=== PATIENT | female | born 1995 | race Caucasian/White ===

== ENCOUNTER 2019-04-26 16:30 | Outpatient (CLI) | payer MEDICAID, OTHER ==
[~2019-04-26] VITALS: Ht 152.4 cm; Wt 74.8 kg
[2019-04-26] MEDS ORDERED: HYDROCODONE/APAP (5/325) TAB PO STA (20:28)
[2019-04-26] MEDS ORDERED: HYDROCODONE/APAP (5/325) TAB ONE (20:34)
[2019-04-26] MEDS ORDERED: PREN-99 PO (21:36)
[2019-04-26] MEDS ORDERED: FER325 PO (21:36)
--- NOTE | 2019-04-27 04:50 | PN ---
Triage Information Date/Time Reason for visit: Patient seen for care in office today. Sent for further evaluation for size less than Weeks of Gestation 36 weeks and 6 days /Para G1 Diabetes: none Hypertention: none Objective Heart Rate: 140's Contractions: < 5 Minutes Apart Results/Medications Result Diagram: 04/26/19 1700 Results 24 hrs Laboratory Tests Test 04/26/19 17:00 04/26/19 17:10 White Blood Count 9.9 Red Blood Count 3.81 L Hemoglobin 10.2 L Hematocrit 31.6 L Mean Corpuscular Volume 82.9 Mean Corpuscular Hemoglobin 26.8 L Mean Corpuscular Hemoglobin Concent 32.3 Red Cell Distribution Width 13.2 Platelet Count 286 Mean Platelet Volume 10.2 Neutrophils % 77.4 H Lymphocytes % 13.0 L Monocytes % 8.5 Eosinophils % 0.5 Basophils % 0.2 Nucleated Red Blood Cells % 0.0 Neutrophils # 7.6 H Lymphocytes # 1.3 Monocytes # 0.8 Eosinophils # 0.1 Basophils # 0.0 Nucleated Red Blood Cells # 0.0 Urine Color STRAW Urine Clarity CLEAR Urine pH 7.0 Urine Specific [place] 1.008 Urine Ketones NEGATIVE Urine Nitrite NEGATIVE Urine Bilirubin NEGATIVE Urine Urobilinogen NEGATIVE Urine Leukocyte Esterase 3+ H Urine Microscopic RBC 2 Urine Microscopic WBC 10 H Urine Squamous Epithelial Cells FEW Urine Hemoglobin NEGATIVE Urine Glucose NEGATIVE Urine Total Protein NEGATIVE Disposition: Discharge Assessment/Plan 23 years old 1 with single intrauterine at 36 weeks and 6 days with a BEL of 05/21/2019 was seen for visit today, sent to triage for further evaluation for size less than dates. She states good movement. She denies nausea, vomiting, shortness of breath, chest pain, headache, visual changes, vaginal bleeding or LOF. -FHR: No sign of metabolic acidosis- Category I -Contractions: Every 2-6 minutes, patient is comfortable and not feeling those -SVE: Closed/thick/high/ceph/intact, no cervical changes in repeat exam -Ultrasound performed: Normal VINEET, BPP 8 out of 8 -Blood type O+ rubella immune, positive GBS -Urine analyses with 10 white BC. Urine culture ordered. Cephalexin 500 mg every 8 hours ordered -Symptoms and sign of labor, preeclampsia, kick count discussed with patient, she voiced understanding. All of her questions answered. -Patient was discharged home in stable condition with the appropriate discharge instructions provided. I would like patient to have close follow-up with her primary physician or outpatient clinic in 1-2 days or return to triage for worsening symptoms or any other urgent concerns. NOE LAW Apr 27, 2019 04:50
--- NOTE | 2019-04-27 07:55 | TRIAGE ---
OB Triage Datetime Report Generated by CPN: 04/27/2019 07:55 Datetime: 04/26/2019 21:05 Stage of : OB Triage Labor Evaluation Frequency: 2-6 Monitor Mode: External Duration (sec)2399: 50-90 Quality: Mild Pattern: Normal: <= 5 Contractions in 10 Minutes Resting Tone [place]: Relaxed Heart Rate FHR Baseline Rate: 140 Monitor Mode: External US FHR Baseline Changes: No Baseline Change Variability: Moderate 6-25 bpm Accelerations: 15X15 Decelerations: None Category: Category I Datetime: 04/26/2019 20:13 Temperature Route: Oral Pain Assessment Pain Scale: 5 Pain Presence: Intermittent Pain Type: Ache Pain Location: Back Pain Relief Measures: Comfort Measures Datetime: 04/26/2019 20:00 Stage of : OB Triage Labor Evaluation Frequency: 1-5 Monitor Mode: External Duration (sec)2399: 50-90 Quality: Mild Pattern: Normal: <= 5 Contractions in 10 Minutes Resting Tone [place]: Relaxed Heart Rate FHR Baseline Rate: 140 Monitor Mode: External US FHR Baseline Changes: No Baseline Change Variability: Moderate 6-25 bpm Accelerations: 15X15 Decelerations: None Category: Category I Datetime: 04/26/2019 19:00 Labor Evaluation Frequency: 2 Monitor Mode: External Duration (sec)2399: 60-80 Quality: Mild Pattern: Normal: <= 5 Contractions in 10 Minutes Resting Tone [place]: Relaxed Heart Rate FHR Baseline Rate: 140 Monitor Mode: External US FHR Baseline Changes: No Baseline Change Variability: Moderate 6-25 bpm Accelerations: 15X15 Decelerations: None Category: Category I Pain Presence: None/Denies Datetime: 04/26/2019 18:30 Labor Evaluation Frequency: 2 Monitor Mode: External Duration (sec)2399: 50-80 Quality: Mild Pattern: Normal: <= 5 Contractions in 10 Minutes Resting Tone [place]: Relaxed Heart Rate FHR Baseline Rate: 135 Monitor Mode: External US FHR Baseline Changes: No Baseline Change Variability: Moderate 6-25 bpm Accelerations: 15X15 Decelerations: None Category: Category I Pain Presence: None/Denies Pain Assessment Comments: Pt denies feeling any pain or pressure with UC Datetime: 04/26/2019 18:13 Vaginal Exam Dilatation (cms): 0.0 Effacement (%): 0 Station: -3 Exam By: TM Datetime: 04/26/2019 17:30 Labor Evaluation Frequency: OCC Monitor Mode: External Quality: Mild Pattern: Normal: <= 5 Contractions in 10 Minutes Resting Tone [place]: Relaxed Heart Rate FHR Baseline Rate: 140 Monitor Mode: External US FHR Baseline Changes: No Baseline Change Variability: Moderate 6-25 bpm Accelerations: 15X15 Decelerations: None Category: Category I Pain Presence: None/Denies Datetime: 04/26/2019 17:17 Time of Arrival: 04/26/2019 16:17 EGA: 36.6 Arrived By: Ambulatory Arrived From: [facility] Office Chief Complaint: R/O PTL (cramps), S>D, high VINEET Movement: Present Contractions: Occasional Rupture of Membranes: Denies Vaginal Bleeding: Normal Show Vaginal Discharge: Denies Recent Sexual Intercouse: Denies Abdominal Trauma: Not Applicable Patient Complaints: Contractions Time Provider Notified: 04/26/2019 17:00 Provider Notified: Lazaro Initial Plan: BPP, EFW, VE, UA, CBC Datetime: 04/26/2019 16:58 Assessment Type: Triage Maternal Assessment Level of Consciousness: Keenly Alert, Responsive DTR's/Clonus: DTRs 2+; No Clonus Headache: Denies Blurred Vision: No Respiratory Effort: Unlabored; Regular Rhythm; Equal Expansion Breath Sounds, Left: Clear and Equal Breath Sounds, Right: Clear and Equal Nausea/Vomiting: Denies RUQ Epigastric Pain: Denies Lower Extremities Edema: Bilateral Lower Extremities Degree: Trace Upper Extremities Edema: None Degree: None Facial Edema: None Fall Risk Assessment History of Falling: (0) No Secondary Diagnosis: (0) No Ambulatory Aid: (0) Bedrest/Nurse Assist IV Therapy: (0) No Gait: (0) Normal/Bedrest/Immobile Mental Status: (0) Oriented to Own Ability Fall Score: 0 Fall Risk Score Definition: No Risk: No action required
== END 2019-04-26 21:57 | disposition home or self-care (01) ==
LOC: OBT 16:30 → L-D 16:34 → OBT 21:57
PROVIDERS: ATTEND Obstetrics & Gynecology
DX: O26.893 Other specified pregnancy related conditions, third trimester (principal); R10.9 Unspecified abdominal pain; Z3A.36 36 weeks gestation of pregnancy
CPT/HCPCS: 76815; 76818; 81001; 85025; Z7500; Z7610; G0463

== ENCOUNTER 2019-05-15 14:53 | Inpatient (IN) | payer OTHER ==
[~2019-05-15] VITALS: Ht 152.4 cm; Wt 75.0 kg
[~2019-05-15 14:53] MED LIST: FER325 PO; PREN-99 PO
--- NOTE | 2019-05-15 15:03 | TRIAGE ---
OB Triage Datetime Report Generated by CPN: 05/15/2019 15:03 Datetime: 05/15/2019 15:01 Time of Arrival: 05/15/2019 14:40 EGA: 39.4 Arrived By: Wheelchair Arrived From: Home Chief Complaint: PT. HERE FOR UC'S Movement: Present Contractions: Regular Rupture of Membranes: Denies Vaginal Bleeding: None Vaginal Discharge: Denies Recent Sexual Intercouse: Denies Abdominal Trauma: Not Applicable Patient Complaints: Contractions; Cramping; Back Pain Time Provider Notified: 05/15/2019 14:45 Provider Notified: HADADIAN Initial Plan: EFM/SVE Datetime: 04/26/2019 21:04 Pain Assessment Pain Scale: 0 Pain Presence: None/Denies Pain Type: N/A Datetime: 04/26/2019 17:17 EGA: 36.6 Datetime: 04/26/2019 16:58 Fall Risk Assessment Fall Score: 0 Fall Risk Score Definition: No Risk: No action required
[2019-05-15] MEDS: LACTATED RINGER'S 1,000 ML IV SCH ×2 (15:26→22:47)
[2019-05-15] MEDS ORDERED: OXYTOCIN 30 UNITS/LR 500 ML IV PRN (15:30)
[2019-05-15] MEDS ORDERED: CARBOPROST 250 MCG INJ IM PRN (15:30)
[2019-05-15] MEDS ORDERED: IBUPROFEN 600 MG TAB PO PRN (15:30)
[2019-05-15] MEDS ORDERED: BUTORPHANOL 2 MG INJ IV PRN (15:30)
[2019-05-15] MEDS ORDERED: METHYLERGONOVINE 0.2 MG INJ IM PRN (15:30)
[2019-05-15] MEDS ORDERED: LIDOCAINE 1% (MPF) 30 ML INJ INJ PRN (15:30)
[2019-05-15] MEDS ORDERED: MISOPROSTOL 200 MCG TAB PR PRN (15:30)
[2019-05-15] MEDS ORDERED: OXYTOCIN 30 UNITS/LR 500 ML IV SCH ×2 (15:30)
[2019-05-15] MEDS ORDERED: AMPICILLIN 2 GM/NS (PMX) 100 ML IV ONE (15:30)
--- NOTE | 2019-05-15 16:13 | PREAC ---
Date/Time of Note Date/Time of Note DATE: 05/15/19 TIME: 16:12 Anesthesia Eval and Record Evaluation Time Pre-Procedure Interview DATE: 05/15/19 TIME: 16:12 Age 23 Sex female NPO: 8 hrs Preoperative diagnosis labor pain Planned procedure epidural Past Medical History Past Medical History: Includes : Gestational age: (38.4) Surgery & Anesthesia Issues No known issue Meds Anticoagulation: No Beta Boyd within 24 hr: No Reason Beta Boyd not given: Pt. not on B-Boyd Reported Medications Ferrous Sulfate* (Ferrous Sulfate*) 325 Mg Tabec, 325 MG PO DAILY, TAB 04/26/19 Vit #76/Iron,Carb/FA (Pnv 29-1 Tablet) 1 Each Tablet, 1 EACH PO, TAB 04/26/19 Current Medications Lactated Ringer's 1,000 ml @ 125 mls/hr Q8H IV Last administered on 05/15/19at 15:26; Admin Dose 125 MLS/HR; Start 05/15/19 at 15:03 Ampicillin 100 ml @ 100 mls/hr ONCE ONCE IV Last administered on 05/15/19at 15:33; Admin Dose 100 MLS/HR; Start 05/15/19 at 15:30; Stop 05/15/19 at 16:29 Ampicillin 50 ml @ 100 mls/hr Q4H IV ; Start 05/15/19 at 19:30 Butorphanol Tartrate (Stadol) 2 mg Q2H PRN IV .PAIN SCALE 6-10; Start 05/15/19 at 15:30 Lidocaine (Xylocaine 1% (Mpf)) 30 ml ONCE PRN INJ .EPISIOTOMY; Start 05/15/19 at 15:30 Oxytocin/Lactated Ringer's 500 ml @ 500 mls/hr ONCE POST IV ; Start 05/15/19 at 15:30 Oxytocin/Lactated Ringer's 500 ml @ 125 mls/hr POST IV ; Start 05/15/19 at 15:30 Ibuprofen (Motrin) 600 mg ONCE PRN PO .PAIN 1-5; Start 05/15/19 at 15:30 Oxytocin/Lactated Ringer's 500 ml @ 0 mls/hr ONCE PRN IV .VAGINAL BLEEDING; Start 05/15/19 at 15:30 Methylergonovine Maleate (Methergine) 0.2 mg ONCE PRN IM .VAGINAL BLEEDING; Start 05/15/19 at 15:30 Carboprost Tromethamine (Hemabate) 250 mcg ONCE PRN IM .VAGINAL BLEEDING; Start 05/15/19 at 15:30 Misoprostol (Cytotec) 1,000 mcg ONCE PRN ME .VAGINAL BLEEDING; Start 05/15/19 at 15:30 Meds reviewed: Yes Allergies Coded Allergies: No Known Allergy (Unverified , 04/26/19) Allergies Reviewed: Yes Labs/Studies Labs Reviewed: Reviewed by anesthesiologist Result Diagram: 05/15/19 1510 Laboratory Tests 05/15/19 15:10 Blood Bank Test 05/15/19 15:10 Rh Immune Globulin Candidate NO test: Positive Studies: ECG (n/a), CXR (n/a) Pre-procedure Exam Airway: Adequate mouth opening Mallampati: Mallampati I Teeth: Normal Lung: Normal Heart: Normal ASA Physical Status ASA physical status: 2 Emergency: None Planned Anesthetic Neuraxial: Epidural Pre-operative Attestations Prior to commencing anesthesia and surgery, the patient was re-evaluated, there was verification of: *The patient's identity *The results of appropriate recent lab work and preoperative vital signs *The above evaluation not changing prior to induction *Anesthetic plan, risk benefits, alternative and complications discussed with patient/family; questions answered; patient/family understands, accepts and wishes to proceed. SOFIE CAR MD May 15, 2019 16:13
[2019-05-15] MEDS ORDERED: LACTATED RINGER'S 1,000 ML IV ONE (16:30)
[2019-05-15] MEDS ORDERED: NALOXONE (0.4 MG/ML) INJ IV PRN (16:30)
[2019-05-15] MEDS ORDERED: ONDANSETRON 4 MG INJ IV PRN (16:30)
[2019-05-15] MEDS ORDERED: DIPHENHYDRAMINE 50 MG INJ IV PRN (16:30)
--- NOTE | 2019-05-15 16:33 | PAC ---
Date/Time of Note Date/Time of Note DATE: 05/15/19 TIME: 16:32 Post-Anesthesia Notes Post-Anesthesia Note Last documented vital signs BP129/63, sat 995, RR 19, Hr 85 temp 38.2 Activity: WNL Respiratory function: WNL Cardiovascular function: WNL Mental status: Baseline Pain reasonably controlled: Yes Hydration appropriate: Yes Nausea/Vomiting absent: No SOFIE CAR MD May 15, 2019 16:33
--- NOTE | 2019-05-15 16:52 | HP ---
Date/Time of Note Date/Time of Note DATE: 05/15/19 TIME: 16:49 OB - History Hx of Present Free Text/Dictation 23 years old 1 with single intrauterine at 39 weeks and 1 day complaining of uterine contractions. She states good movement. She denies nausea, vomiting, shortness of breath, chest pain, headache, visual changes, vaginal bleeding or LOF. Chief Complaint: Uterine contractions Estimated Due Date: May 21, 2019 : 1 Care: Good Care Ultrasounds: Normal mid trimester US Obstetrical Complications: None Past Family/Social History * Past Medical, Surgical, Family and Obstetric Histories reviewed from chart. Blood Type: O+ Rubella: immune RPR/VDRL: Negative GBS Status: Positive HBsAG: Negative OB Admission Exam Vital Signs Vital Signs Blood pressure 120/67, pulse rate 70/minutes, respiratory rate 16/minutes, temperature 98.6 Physical Exam HEENT: WNL Heart: Rhythm Normal Lungs: Clear Abdomen: WNL Extremities: Normal Cervical Dilatation: 4cm Effacement: Other (90%) Station: -3 Membranes: Intact Heart Rate: 140's Accelerations: Accelerations Present Decelerations: No Decelerations Varibility: Moderate Contractions on Admission: < 5 Minutes Apart Intensity: Firm Last 72 hours Lab Results CBC & BMP 05/15/19 15:10 OB Assessment/Plan Other plan: 23 years old 1 with single intrauterine at 39 weeks and 4 days in labor-FHR: No sign of metabolic acidosis- Category I -Continuous EFM, toco -CBC, blood type and screen -Analgesia options with R/B/A discussed in detail with patient -Epidural per patient request -Please see the orders -O+/Rubella: Immune -GBS: Positive, ampicillin ordered Admission, procedures, expectations, risks and possible complications have been discussed in detail with the patient. Risk of vaginal delivery including but not limited to bleeding, infection, cervical laceration, placental retention, injury to fetus, blood transfusion, blood transfusion related infection, risk of anesthesia, adhesion, cervical laceration, episiotomy/laceration, possible delivery with risk of bleeding, infection, injury to other organs (bowel, bladder, ureter, vessels, nerves), injury to fetus, blood transfusion, blood transfusion related infection, risk of anesthesia, scar and hernia formation, needs for future , removal of uterus or any other indicated surgery discussed with the patient. She expressed understanding and repeats the risks. All of her questions were answered. She signed the informed consent. PHYSICIAN'S VERIFICATION OF INFORMED CONSENT The patient was counseled regarding the procedure, its indications, risks, potential complications and alternatives and any questions were answered. Consent was obtained. PLANNED PROCEDURE/TREATMENT: Vaginal delivery, episiotomy, repair of laceration possible delivery NOE LAW May 15, 2019 16:52
[2019-05-15] MEDS: AMPICILLIN 1 GM/NS (PMX) 50 ML IV SCH (19:59)
[2019-05-15] MEDS: FENTAnyl 2MCG/ML-ROPIV 0.2% 100 ML BAG EPI SCH ×2 (20:00→22:08)
[2019-05-16] MEDS: AMPICILLIN 1 GM/NS (PMX) 50 ML IV SCH ×6 (00:07→17:30)
[2019-05-16 00:09] VITALS: Ht 152.4 cm; Wt 75.0 kg
[2019-05-16] MEDS: FENTAnyl 2MCG/ML-ROPIV 0.2% 100 ML BAG EPI SCH (02:54)
[2019-05-16] MEDS: LACTATED RINGER'S 1,000 ML IV SCH ×2 (03:56→08:08)
--- NOTE | 2019-05-16 09:26 | LDN ---
Date/Time of Note Date/Time of Note DATE: 05/16/19 TIME: 09:19 Delivery Summary 23 years old 1 with single intrauterine at 39 weeks and 6 day. Estimated due date May 18, 2019. s/p of viable male infant. After delivery of the head the rest of the body delivered easily. I did not apply excessive traction. Placenta delivered spontaneously and intact. evaluation of the placenta confirmed intact placenta. Uterus was firm with cervix closed on exam. Second-degree vaginal perineal laceration was repaired with 3-0 Vicryl in normal fashion. Placenta Delivered: Spontaneously Meconium: none Episiotomy: No Sponge & Needle done & correct: Yes All needle counts correct: Yes Any foreign bodies felt in the: No Delivery Information Sex Infant Sex: male Apgars 1 Minute: 8 5 Minute: 9 Suctioning Nose & mouth suctioned at travis: No Delee suction performed: No Umbilical Cord Umbilical cord with: 3 Vessels Cord presentations: no nuchal cord Nuchal cord present X: 0 Cord Blood was obtained: Yes Mother & Baby Disposition Disposition Mom & Baby to Maternity; Good: Yes LISBETH MITTAL MD May 16, 2019 09:26
[2019-05-16] MEDS ORDERED: BENZOCAINE 20% 56 ML SPRAY TOP PRN (09:30)
[2019-05-16] MEDS ORDERED: WITCH HAZEL/GLYCERIN PAD PR PRN (09:30)
[2019-05-16] MEDS ORDERED: DIPHENHYDRAMINE 25 MG CAP PO PRN (09:30)
[2019-05-16] MEDS ORDERED: MISOPROSTOL 200 MCG TAB PR PRN (09:30)
[2019-05-16] MEDS ORDERED: OXYTOCIN 30 UNITS/LR 500 ML IV PRN (09:30)
[2019-05-16] MEDS ORDERED: NA PHOSPHATE/BIPHOS 133 ML ENEMA PR PRN (09:30)
[2019-05-16] MEDS ORDERED: SENNA/DOCUSATE NA (8.6MG/50MG) TAB PO PRN (09:30)
[2019-05-16] MEDS ORDERED: DIPHENHYDRAMINE 50 MG INJ IV PRN (09:30)
[2019-05-16] MEDS ORDERED: ONDANSETRON 4 MG INJ IV PRN (09:30)
[2019-05-16] MEDS ORDERED: ONDANSETRON 4 MG TAB PO PRN (09:30)
[2019-05-16] MEDS ORDERED: LANOLIN HPA 1 PKT TOP PRN (09:30)
[2019-05-16] MEDS ORDERED: DIBUCAINE 1% 30 GM OINT TOP PRN (09:30)
[2019-05-16] MEDS ORDERED: MAGNESIUM HYDROXIDE 30ML CUP PO PRN (09:30)
[2019-05-16] MEDS ORDERED: CARBOPROST 250 MCG INJ IM PRN (09:30)
[2019-05-16] MEDS ORDERED: HYDROCODONE/APAP (5/325) TAB PO PRN (09:30)
[2019-05-16 10:55] VITALS: BP 115/55; PULSE 82; RESP 18
[2019-05-16] MEDS: LACTATED RINGER'S 1,000 ML IV* SCH ×2 (11:00→17:17)
[2019-05-16] MEDS: IBUPROFEN 600 MG TAB PO SCH ×3 (12:00→23:54)
[2019-05-16] MEDS: HYDROCODONE/APAP (5/325) TAB PO PRN (14:52)
[2019-05-16 16:15] VITALS: BP 120/59; PULSE 72; RESP 17
[2019-05-16 20:45] VITALS: BP 119/60; PULSE 80; RESP 18
[2019-05-16] MEDS: SENNA/DOCUSATE NA (8.6MG/50MG) TAB PO SCH (21:33)
[2019-05-17 04:00] VITALS: BP 117/58; PULSE 76; RESP 17
[2019-05-17] MEDS: IBUPROFEN 600 MG TAB PO SCH ×3 (05:48→18:02)
[2019-05-17 08:30] VITALS: BP 117/66; PULSE 77; RESP 17
[2019-05-17] MEDS: SENNA/DOCUSATE NA (8.6MG/50MG) TAB PO SCH ×2 (10:33→21:29)
[2019-05-17 16:00] VITALS: BP 115/73; PULSE 83; RESP 16
--- NOTE | 2019-05-17 17:35 | DS ---
Date/Time of Note Date/Time of Note DATE: 05/17/19 TIME: 17:34 Obstetrical Discharge Record Final Diagnosis Final Diagnosis: Term delivered Vaginal Delivery Obstetrical Delivery: Spontaneous Complications Augmentation: Yes Induction: No Rupture of Membranes: No Condition on Discharge Physical Assessment Voiding: Yes Bowel Movement: Yes Breast: Soft, non-tender, Filling Fundus: Firm Abdomen and Incision: Soft nontender Calf Tenderness: No Patient Condition: Good LISBETH MITTAL MD May 17, 2019 17:35
[2019-05-17 21:40] VITALS: BP 126/74; PULSE 78; RESP 18
[2019-05-18] MEDS: IBUPROFEN 600 MG TAB PO SCH ×3 (00:37→11:42)
[2019-05-18 04:00] VITALS: BP 121/58; PULSE 79; RESP 17
[2019-05-18 07:55] VITALS: BP 120/66; PULSE 72; RESP 18
[2019-05-18] MEDS: HYDROCODONE/APAP (5/325) TAB PO PRN (07:55)
[2019-05-18] MEDS: SENNA/DOCUSATE NA (8.6MG/50MG) TAB PO SCH (08:42)
[2019-05-18] MEDS ORDERED: MEASLES,MUMPS,RUBELLA VACCINE INJ SC* ONE (09:00)
[2019-05-18] MEDS ORDERED: DIPHTH/TET/ACEL PERTUSS (ADULT) 0.5 ML VIAL IM* ONE (09:00)
[2019-05-18] MEDS ORDERED: VARICELLA VACCINE LIVE/PF 1,350 UNIT/0.5 ML ML SC* ONE (09:00)
--- NOTE | 2019-05-19 14:41 | DELSUM ---
Delivery Summary A-C Datetime Report Generated by CPN: 05/19/2019 14:41 DELIVERY PERSONNEL Wooling Machine Operator: Duvo, Jasmin MATERNAL INFORMATION Delivery Anesthesia: Epidural Medications in Delivery: LR WITH 30 UNITS OF PITOCIN Delivery QBL (ml): 305 Placenta Cultured: No Maternal Complications: None LABOR SUMMARY EDC: 05/18/2019 00:00 No. Babies in Womb: 1 Attempted: No Labor Anesthesia: Epidural LABOR INFORMATION Reason for Induction: Not Applicable Onset of Labor: 05/15/2019 14:00 Oxytocin: N/A Group B Beta Strep: Positive Antibiotics # of Doses: AMPICILLIN X5 Antibiotics Time of Last Dose: 05/16/2019 08:08 Steroids Given: None Reason Steroids Not Administered: Not Applicable MEMBRANES Membranes Rupture Method: Spontaneous Rupture of Membranes: 05/15/2019 14:00 Length of Rupture (hr): 19.07 Amniotic Fluid Color: Clear Amniotic Fluid Amount: Large Amniotic Fluid Odor: Normal STAGES OF LABOR Stage 3 hr: 0 Stage 3 min: 2 Total Time in Labor hr: 19 Total Time in Labor min: 6 VAGINAL DELIVERY Episiotomy: None Laceration Extension: N/A Laceration Repair: Not Applicable Initial Vag Sponge Count: 10 Final Vag Sponge Count: 10 Initial Vag Sharps Count: 1 Final Vag Sharps Count: 1 Sponge Count Correct: Yes; Vaginal Sweep Performed Sharps Count Correct: Yes BABY A INFORMATION Infant Delivery Date/Time: 05/16/2019 09:04 Method of Delivery: Vaginal Born in Route : No : N/A Forceps: N/A Vacuum Extraction: N/A Shoulder Dystocia : N/A SHOULDER DYSTOCIA BABY A Infant Delivery Date/Time: 05/16/2019 09:04 PRESENTATION/POSITION BABY A Presentation: Cephalic Cephalic Presentation: Vertex Vertex Position: Left Occipital Anterior Breech Presentation: N/A PLACENTA INFORMATION BABY A Placenta Delivery Time : 05/16/2019 09:06 Placenta Method of Delivery: Spontaneous Placenta Status: Delivered SCORES BABY A Heart Rate 1 min: >100 bpm Resp Effort 1 min: Good Cry Reflex Irritability 1 min: Cough/Sneeze/Pulls Away Muscle Tone 1 min: Active Motion Color 1 min: Blue/Pale SCORE 1 MIN: 8 Heart Rate 5 min: >100 bpm Resp Effort 5 min: Good Cry Reflex Irritability 5 min: Cough/Sneeze/Pulls Away Muscle Tone 5 min: Active Motion Color 5 min: Body [place], Extremit Blue SCORE 5 MIN: 9 INFORMATION BABY A Gestational Age at Delivery: 39.5 Gestational Status: Full Term- 39- 40.6 Weeks Outcome : Liveborn, with signs of life Infant Condition : Stable Sex: Male IDENTIFICATION/MEDS BABY A ID Band Number: [id number] ID Band Location: Right Leg; Left Arm Sensor Applied: Yes Sensor Number: [id number] Sensor Location : Cord Clamp Vitamin K Given : Not Given Erythromycin Given: Not Given WEIGHT/LENGTH BABY A Birthweight (gm): 2875 Infant Weight (lb): 6 Weight (oz): 5 Infant Length (in): 20.00 Infant Length (cm): 50.80 CORD INFORMATION BABY A No. Cord Vessels: 3 Nuchal Cord : N/A Cord Blood Taken: Yes Infant Suction: Mouth; Nose ASSESSMENT BABY A Infant Complications: Multiple Variable Decels Physical Findings at Delivery: Caput Succedaneum; Molding of the Head; Within Normal Limits Infant Respirations: Appears Normal Retail Sales Associate Bilingual/ALS Called : Yes Infant Care By: lukasz collins, RT Transferred To: Remains with Mother
== END 2019-05-18 14:41 | disposition home or self-care (01) | DRG 807 ==
LOC: OBT 14:53 → L-D 14:53 → OBT 14:54 → L-D 14:54 → PP1 05-16 15:34
PROVIDERS: ADMIT Obstetrics & Gynecology; ATTEND Obstetrics & Gynecology
PROC: 10E0XZZ Delivery of Products of Conception, External Approach (ICD-10-PCS; principal; 2019-05-16)
PROC: 0KQM0ZZ Repair Perineum Muscle, Open Approach (ICD-10-PCS; 2019-05-16)
DX: O99.824 Streptococcus B carrier state complicating childbirth (principal); O70.1 Second degree perineal laceration during delivery; Z37.0 Single live birth; Z3A.39 39 weeks gestation of pregnancy
CPT/HCPCS: 36415; 36600; 62322; 82803; 85025; 85610; 85730; 86592; 86850; 86900; 86901; 87340; 90716; 99464; G0463; J0290; J2405; J2590; J3010; J7120